=== PATIENT | male | born 1950 | race Hispanic/Latino ===

== ENCOUNTER 2021-03-23 17:14 | Emergency (ER) | payer OTHER ==
[~2021-03-23] VITALS: Ht 170.2 cm; Wt 74.8 kg
[2021-03-23] MEDS ORDERED: ONDANSETRON 4MG INJ IVP STA (18:20)
[2021-03-23] MEDS ORDERED: KETOROLAC 30MG VIAL (30MG/ML) IVP ONE (18:30)
[2021-03-23] MEDS ORDERED: LACTATED RINGERS 1000ML 1,000 ML IV ONE ×2 (18:30)
[2021-03-23] MEDS ORDERED: FAMOTIDINE 20MG TAB PO ONE (18:30)
[2021-03-23 18:36] LABS: BASOPHILS % (AUTO) 0.2 % (0.0-5.0); EOSINOPHILS % (AUTO) 0.6 % (0.0-8.0); HEMATOCRIT 42.3 % (42-54); LYMPHOCYTES % (AUTO) 13.3 % (21.0-51.0); MEAN CORPUSCULAR HEMOGLOBIN 30.3 pg (27.0-33.0); MEAN CORPUSCULAR HGB CONC 32.4 g/dL (32.0-36.0); MEAN CORPUSCULAR VOLUME 93.6 fL (79-99); MONOCYTES % (AUTO) 6.2 % (3.0-13.0); NEUTROPHILS % (AUTO) 79.3 % (40.0-77.0); PLATELET COUNT (AUTO) 284 K/uL (130-400); RED BLOOD CELL COUNT(AUTO) 4.52 MIL/uL (4.50-6.20); RED CELL DISTRIBUTION WIDTH 16.4 % (11.0-15.5); WHITE BLOOD COUNT (AUTO) 8.9 K/uL (4.8-10.8)
[2021-03-23 18:50] LABS: APPEARANCE,URINE Clear (CLEAR); BILIRUBIN,URINE Negative (NEGATIVE); COLOR,URINE Yellow (YELLOW); GLUCOSE, URINE (UA) Negative (NEGATIVE); KETONES,URINE Negative (NEGATIVE); LEUKOCYTE ESTERASE ,URINE Negative (NEGATIVE); NITRATE,URINE Negative (NEGATIVE); OCCULT BLOOD,URINE Negative (NEGATIVE); PROTEIN,URINE Trace mg/dL (NEGATIVE)
[2021-03-23 18:52] LABS: POTASSIUM 4.2 mmol/L (3.5-5.1)
[2021-03-23 18:57] LABS: ALBUMIN 3.7 g/dL (3.5-5.0); BILIRUBIN,TOTAL 0.4 mg/dL (0.2-1.0); TOTAL PROTEIN, SERUM 7.4 g/dL (6.0-8.3)
[2021-03-23 18:58] LABS: BACTERIA,URINE Rare /HPF (None Seen); MUCUS,URINE Rare LPF (None Seen); RBC,URINE 0-1 /HPF (0-1); SQUAMOUS EPITHELIAL CELL,UR Rare /HPF (0-2); WBC,URINE 0-1 /HPF (0-1)
[2021-03-23] MEDS ORDERED: PROMETHAZINE HCL 25 MG/ML 1ML AMPULE IM STA (20:10)
[2021-03-23] MEDS ORDERED: PROM25I PO (22:01)
[2021-03-23 22:20] VITALS: BP 126/59
== END 2021-03-23 22:21 | disposition home or self-care (01) ==
LOC: EDH 17:14
DX: R11.2 Nausea with vomiting, unspecified (principal); I10 Essential (primary) hypertension; B02.29 Other postherpetic nervous system involvement; K76.89 Other specified diseases of liver
CPT/HCPCS: 36415; 74176; 80053; 81001; 82150; 83690; 85025; 96361; 96372; 96374; 96375; 99285; J1885; J2405; J2550; J7120 ×2